=== PATIENT | female | born 1935 | race Caucasian/White ===

== ENCOUNTER 2017-04-15 14:11 | Inpatient (IN) | payer MEDICARE, BC ==
[2017-04-15] MEDS ORDERED: Sodium Chloride 0.9% 10 ML Syringe FLUSH PRN (14:44)
[2017-04-15] MEDS ORDERED: Diltiazem 25 MG/5 ML SDV IVPUSH ONE ×4 (15:11→19:18)
[2017-04-15 15:29] LABS: CHLORIDE,CL 106 mmol/L (98-107); SODIUM,NA 144 mmol/L (136-145)
[2017-04-15] MEDS ORDERED: Diltiazem 100 MG in Sodium Chloride 0.9% 100 ML IV SCH (16:30)
[2017-04-15] MEDS: Apixaban 2.5 MG Tab PO SCH ×2 (18:00→22:57)
[2017-04-15] MEDS ORDERED: Nitroglycerin 0.4 MG Tab.SL SL PRN (18:46)
[2017-04-15] MEDS ORDERED: metFORMIN 500 MG Tab PO SCH (19:00)
[2017-04-15] MEDS ORDERED: Carvedilol 12.5 MG Tab PO SCH (19:00)
[2017-04-15] MEDS ORDERED: Aspirin 81 MG Tab.Chew PO SCH (19:00)
[2017-04-15] MEDS ORDERED: Simvastatin 20 MG Tab PO SCH (20:00)
[2017-04-15] MEDS ORDERED: amLODIPine 10 MG Tab PO SCH (20:00)
[2017-04-15] MEDS ORDERED: Metoprolol Tartrate 50 MG Tab PO SCH (20:00)
[2017-04-15] MEDS ORDERED: Apixaban 2.5 MG Tab PO SCH (20:28)
[2017-04-15 23:59] VITALS: BP 142/77
--- NOTE | 2017-04-16 01:12 | HP ---
Admission history and physical along with the transfer summary. Date of transfer: 04/15/2017. REASON FOR ADMISSION: Palpitations with tachycardia. HISTORY OF PRESENT ILLNESS: An 82-year-old white female, woke at about 11:30 this morning. She had a little bit of discomfort in the right jaw. It got better. She had lunch, but at about 12:30, she noted that her heart was going fast. This concerned her, because when she had jaw pain previously, she had a heart attack and she does have a history of atrial fibrillation and she was concerned that she was having problems with her heart when these symptoms occurred. She then went to the emergency room where she arrived about 3 o'clock for further assessment. In the emergency room, she was found to be in atrial fibrillation with rapid ventricular response. She was assessed by the provider. Placed on Cardizem per protocol with 2 boluses and recommended for admission for further management. PAST MEDICAL HISTORY: 1. Significant for previous atrial fibrillation. She had been on Coumadin in the past, this was stopped some time ago by her promotions director and she is currently on aspirin and Plavix. 2. She is status post [place] in 2012. She had a stent in the right coronary artery. 3. She had a pacemaker placed about that same time. The type of pacemakers is undetermined. Previous EKGs are showing electronic atrial pacemaker. No evidence of ventricular spike on those EKGs. Family says the pacemaker was placed because of her heart going too fast and they were having a hard time controlling her heart rate. 4. Chronic kidney disease stage III. 5. Mild diastolic dysfunction. 6. Type 2 diabetes mellitus. 7. Sick sinus syndrome. 8. Hypothyroidism. 9. Hyperlipidemia. 10.Obstructive sleep apnea. 11.History of hepatitis, type unknown. MEDICATIONS: Vitamin D3, carvedilol 12.5 mg b.i.d., alprazolam half to one tablet t.i.d. p.r.n., amlodipine 10 mg daily, multivitamin daily, artificial tears, aspirin 81 mg daily, glipizide 10 mg with breakfast, lisinopril 20 mg daily, Victoza 1.2 mg subcu daily, levothyroxine 25 mcg daily, hydrochlorothiazide 12.5 mg daily, Plavix 75 mg daily, metformin 1000 mg b.i.d., simvastatin 20 mg at bedtime and nitroglycerin as directed. ALLERGIES: Amiodarone, Lipitor, Farxiga, Tradjenta, and pravastatin. REVIEW OF SYSTEMS: She denies any dizziness or lightheadedness. No chest pain. No shortness of breath. Jaw pain resolved when she went to the emergency room. No nausea or vomiting. No abdominal pain. No headache. No URI symptoms. No cough. No abdominal pain. No change in bowel habits. No urinary symptoms except for nocturia x2. She does have leg cramps. No numbness or tingling in the extremities. PHYSICAL EXAMINATION: General: She is alert. She is afebrile. Vital Signs: Heart rate running in the 110s to 120s. Blood pressure is 153/82, respirations 16, O2 sats 93% on room air. HEENT: Pupils unremarkable. TMs negative. Throat clear. Neck: No adenopathy. Heart: Irregular without murmur. Lungs: Clear to auscultation. Abdomen: Soft, obese, nontender. No masses palpable. EXTREMITIES: Warm and dry. There is no edema. LABORATORY DATA: White count 6.4, hemoglobin 12.0. INR of 1. Electrolytes are normal. Creatinine is 1.7, baseline is 1.4. Glucose 214. LFTs are normal. CK is normal. Troponin is negative. ProBNP is 468. CRP is negative. TSH is 2.022. DIAGNOSTIC DATA: EKG shows atrial fibrillation with a rapid ventricular response. No electronic pacemaker spikes seen. Chest x-ray showed no acute process. HOSPITAL COURSE AND TREATMENT: She was given Cardizem per protocol 2 boluses in the emergency room and then put on a drip. The drip was titrated from 5 mg/hour up to 15 mg/hour without response in heart rate. She was started on Eliquis. Initially given a dose of 5 mg, but this needs to be reduced to 2.5 mg b.i.d. due to her creatinine clearance. I contacted the [facility] on-call promotions director, Dr. Richard. Explained the situation to her and my concern about electronic pacemaker. She expressed no concerns regarding the pacemaker, advised that we could use some Lopressor 50-75 mg t.i.d. orally and stop the Coreg since Lopressor will control the rate. She also advised stopping the aspirin and continuing Plavix along with the Eliquis after renal dosing. Information was given to patient and her family. The family was concerned with the pacemaker not being able to be determined whether it was functioning properly or not as we cannot interrogating the pacemaker at this location and in the past she has had problems with heart rate control requiring transfer to [place], they felt that transfer to [place] will be more appropriate and I concurred with their evaluation. I then contacted [facility] on-call again, talked to the hospitalist Dr. Valladares. He agreed to accept the patient in transfer. He was concerned about her condition, especially due to the fact that her heart rate was not responding to the high dose of the Cardizem drip. He recommended the patient will be accepted at [facility] and placed in the ICU. The patient will be given Lopressor 50 mg p.o. prior to discharge. DISPOSITION: The patient is being transferred to [facility] by [facility] for care of atrial fibrillation with rapid ventricular response. Dr. Valladares, accepting physician. Duration of discharge day and assessment was approximately 1 hour. FM: 04/15/2017 21:13:59 MODL: 04/16/2017 00:49:47 /[id number] MTDD
[2017-04-16] MEDS ORDERED: glipiZIDE 10 MG Tab.ER PO SCH (07:00)
[2017-04-16] MEDS ORDERED: Levothyroxine 25 MCG Tab PO SCH (07:00)
[2017-04-16] MEDS ORDERED: Non-Formulary Medication 1 Each (Liraglutide [Victoza] 1.2 MG) SUBCUT SCH (08:00)
[2017-04-16] MEDS ORDERED: Lisinopril 20 MG Tab PO SCH (08:00)
[2017-04-16] MEDS ORDERED: Multivitamins with Iron/Calcium/Folic Acid/Minerals Tab PO SCH (08:00)
[2017-04-16] MEDS ORDERED: Hydrochlorothiazide 25 MG Tab PO SCH (08:00)
[2017-04-16] MEDS ORDERED: Cholecalciferol (Vitamin D3) 1,000 Unit Tab PO SCH (08:00)
--- NOTE | 2017-04-17 08:21 | ER ---
Date of Service: 04/15/2017 SUBJECTIVE: Migdalia presents to the emergency room with complaints of chest discomfort and lightheadedness. The patient states that she began experiencing these symptoms at approximately 12 o'clock this afternoon after a nap. The patient states that she does have a history of coronary artery disease and does have a pacemaker. According to her medical record, she does have a history of paroxysmally atrial fibrillation diagnosed in 2011. Her coronary artery disease consists of a stent of her right coronary artery. She states that she again is experiencing some chest tightness, discomfort, and some achy type sensation in her neck. She states that she has not been experiencing any diaphoresis. No nausea, vomiting, or diarrhea. PAST MEDICAL HISTORY: 1. Coronary artery disease. 2. Stage 3 chronic kidney disease. 3. Diastolic dysfunction. 4. Type 2 diabetes mellitus. 5. Cardiac pacemaker. 6. History of sick sinus syndrome. 7. History of paroxysmal atrial fibrillation, previously had been on Coumadin and Cardizem according to the patient. 8. Osteoarthritis. 9. Hypothyroidism. 10.Obstructive sleep apnea. 11.Hyperlipidemia. 12.Hepatitis. 13.Osteoarthritis. MEDICATIONS: 1. Carvedilol. 2. Alprazolam. 3. Amlodipine. 4. Multivitamin. 5. Artificial Tears. 6. Vitamin D3. 7. Aspirin. 8. Glucotrol XL. 9. Prinivil. 10.Victoza. 11.Levothyroxine. 12.Hydrochlorothiazide. 13.Plavix. 14.Glucophage. 15.Zocor. 16.Nitrostat. ALLERGIES: Amiodarone, atorvastatin, Farxiga, Tradjenta, and pravastatin. REVIEW OF SYSTEMS: General: No fever or chills. HEENT: No sore throat, rhinorrhea, or congestion. Respiratory: No shortness breath. Cardiac: Again, positive for chest tightness and achiness in her jaw and neck. Denies any significant palpitations. GI: No nausea, vomiting, or diarrhea. No melena, hematochezia, or hematemesis. : Denies any dysuria. Musculoskeletal: No myalgias or arthralgias. Denies any increased peripheral edema. PHYSICAL EXAMINATION: General: This is an 82-year-old female patient, in no acute distress. Vital Signs: Initially, blood pressure was 136/69, heart rate 120 to 150, respiratory rate 16, O2 saturations 98%. 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 SKIN: Warm, pale, and dry. HEENT. Head is normocephalic, atraumatic. Eyes, PERRLA. Extraocular intact. Ears, TMs are clear. Mouth, oral mucosa is moist. Lungs: Clear to auscultation. Heart: Irregularly irregular. She is tachycardic. Abdomen: Soft, nontender. There is no hepatosplenomegaly noted. There is no masses noted. Extremities: Without edema. Neurologic: The patient is alert, answers, all questions appropriately. Her speech is fluent. Her gait is within normal limits. DIAGNOSTIC DATA: A 12-lead EKG was obtained showing atrial fibrillation with RVR. LABORATORY DATA: WBCs 6.4, hemoglobin 12.0, and platelets are 191. Coags; PT is 10.3, INR is 1.0. Chemistry: Sodium is 144, potassium is 4.0, chloride is 106, bicarb is 25, BUN is 22, creatinine is 1.7, GFR is 29, glucose is 214, calcium is 8.8, corrected calcium is 9.28, total bilirubin is 0.6, AST is 19, ALT is 28, alkaline phosphatase is 74. CK is 94, CK-MB is 1.1. Troponin is 0.00, C-reactive protein is less than 0.2. BNP is 468, and TSH is 2.02. A portable chest x-ray was obtained. There was no evidence of any acute failure pattern. EMERGENCY ROOM COURSE: IV access was established. She was given Cardizem in 220 mg doses. The patient's heart rate decreased from approximately 150 down to 70s range. After a short period time, the patient's heart rate would increase and she would not be back up in the 120 to 150s. Subsequently, the patient was started on a Cardizem drip and decision was made to admit the patient onto the floor. ASSESSMENT: Atrial fibrillation with rapid ventricular response. PLAN: The patient will be admitted acutely. I did speak with a Dr. Mitchel Bowles regarding admission for this patient. The patient will be admitted acutely. We will start her on Eliquis 10 mg b.i.d. All questions were answered. MWK: 04/15/2017 16:34:33 MODL: 04/15/2017 17:18:42 /[id number]
== END 2017-04-15 21:55 | disposition short-term general hospital (02) | DRG 309 ==
LOC: VM.ED 14:11 → VM.MS 16:27
PROVIDERS: ADMIT Family Medicine; ATTEND Family Medicine
DX: I48.0 Paroxysmal atrial fibrillation (principal); R42 Dizziness and giddiness; R07.9 Chest pain, unspecified; I50.30 Unspecified diastolic (congestive) heart failure; I25.10 Atherosclerotic heart disease of native coronary artery without angina pectoris; Z95.0 Presence of cardiac pacemaker; E11.9 Type 2 diabetes mellitus without complications; M19.90 Unspecified osteoarthritis, unspecified site; E03.9 Hypothyroidism, unspecified; G47.33 Obstructive sleep apnea (adult) (pediatric); E78.5 Hyperlipidemia, unspecified; Z79.82 Long term (current) use of aspirin; Z79.899 Other long term (current) drug therapy; Z79.84 Long term (current) use of oral hypoglycemic drugs; N18.3 Chronic kidney disease, stage 3 (moderate); I25.2 Old myocardial infarction; K75.9 Inflammatory liver disease, unspecified; Z88.8 Allergy status to other drugs, medicaments and biological substances
CPT/HCPCS: 36415; 71010; 80053; 82550; 82553; 83880; 84443; 84484; 85025; 85610; 86140; 93005; 96374; 96376; 99284; 99285; J7050; 82962; A9270-GY; J3490

== ENCOUNTER 2017-05-25 08:43 | Emergency (ER) | payer MEDICARE, BC ==
[2017-05-25 09:21] VITALS: BP 115/65
--- NOTE | 2017-05-25 09:46 | EDM.PDOC ---
ED HPI GENERAL MEDICAL PROBLEM - General Chief Complaint: Cardiovascular Problem Stated Complaint: CARDIAC ISSUES Time Seen by Provider: 05/25/17 08:51 Source of Information: Reports: Patient, RN, RN Notes Reviewed History Limitations: Reports: No Limitations - History of Present Illness INITIAL COMMENTS - FREE TEXT/NARRATIVE: Patient presents the emergency room at [facility] complaining of heart palpitations and shortness of breath. The patient states her symptoms began around 11:00 last night. The patient did take a nitroglycerin which did seem to help her symptoms. The patient states that when she felt the palpitations and shortness of breath her neck felt "tight." The patient states that she does have a permanent pacemaker. The patient states that these same symptoms occurred about 1 month ago and seen in this emergency room. The patient was subsequently transferred to [facility] in [place] for further treatment and evaluation. The patient states that she underwent a cardiac catheter and interrogation of her pacemaker; all of which came back normal. At that time the patient was discharged from [facility]. The patient denies any current symptomatology during exam. The patient denies any focal neurological deficit. The patient denies any back pain. The patient denies any nausea or vomiting. The patient denies any dizziness. The patient did not fall. The patient states she feels steady on her feet. Onset Date: 05/24/17 Onset Time: 23:00 Duration: Resolved Prior to Arrival Location: Reports: Chest Associated Symptoms: Reports: Shortness of Breath Treatments BANK MANAGER: Reports: Nitroglycerin - Related Data Allergies Allergy/AdvReac Type Severity Reaction Status Date / Time amiodarone Allergy Cannot Verified 04/15/17 17:03 Remember atorvastatin [From Lipitor] Allergy Cannot Verified 04/15/17 17:03 Remember dapagliflozin [From Farxiga] Allergy Cannot Verified 04/15/17 17:03 Remember linagliptin [From Tradjenta] Allergy Cannot Verified 04/15/17 17:03 Remember pravastatin Allergy Cannot Verified 04/15/17 17:03 Remember Home Meds: Home Meds ALPRAZolam [Alprazolam] 0.5 - 1 tab PO TID PRN 04/15/17 [History] Aspirin 81 mg PO BRK 04/15/17 [History] Carvedilol [Carvedilol] 12.5 mg PO BIDMEALS 04/15/17 [History] Cholecalciferol (Vitamin D3) [Vitamin D3] 2,000 unit PO DAILY 04/15/17 [History] Clopidogrel [Plavix] 75 mg PO DAILY 04/15/17 [History] Dextran 70/Hypromellose [Artificial Tears] 1 each OP BEDTIME 04/15/17 [History] Hydrochlorothiazide 12.5 mg PO DAILY 04/15/17 [History] Levothyroxine 25 mcg PO ACBREAKFAST 04/15/17 [History] Liraglutide [Victoza] 1.2 mg SUBCUT DAILY 04/15/17 [History] Lisinopril [Prinivil] 20 mg PO DAILY 04/15/17 [History] Multivitamin [Multivitamins] 1 each PO DAILY 04/15/17 [History] Nitroglycerin [Nitrostat] 0.4 mg SL ASDIRECTED PRN 04/15/17 [History] Simvastatin [Zocor] 20 mg PO BEDTIME 04/15/17 [History] amLODIPine [Norvasc] 10 mg PO BEDTIME 04/15/17 [History] glipiZIDE [Glucotrol XL] 10 mg PO ACBREAKFAST 04/15/17 [History] metFORMIN [Glucophage] 1,000 mg PO BIDMEALS 04/15/17 [History] Past Medical History HEENT History: Reports: Impaired Vision, Other (See Below) Other HEENT History: ptosis Cardiovascular History: Reports: Afib, CAD, High Cholesterol, Hypertension, [place], Pacemaker, Stents, Other (See Below) Other Cardiovascular History: diastolic dysfunction, sick sinus syndrome Respiratory History: Reports: Sleep Apnea, Other (See Below) Other Respiratory History: dyspnea Gastrointestinal History: Reports: Hepatitis, Other (See Below) Other Gastrointestinal History: abd pain Genitourinary History: Reports: Renal Disease Musculoskeletal History: Reports: Osteoarthritis Psychiatric History: Reports: Anxiety Endocrine/Metabolic History: Reports: Diabetes, Type II, Hypothyroidism, Vitamin D Deficiency, Other (See Below) Other Endocrine/Metabolic History: left thyroid nodule, chronic lymphocytic thyroiditis, generalized hyperhidrosis - Past Surgical History HEENT Surgical History: Reports: None Cardiovascular Surgical History: Reports: Coronary Artery Stent, Pacer Female Surgical History: Reports: Hysterectomy Musculoskeletal Surgical History: Reports: Hip Replacement Social & Family History - Family History Family Medical History: Noncontributory - Tobacco Use Smoking Status *Q: Never Smoker Second Hand Smoke Exposure: No - Caffeine Use Caffeine Use: Reports: Coffee - Recreational Drug Use Recreational Drug Use: No ED ROS GENERAL - Review of Systems Review Of Systems: See Below Constitutional: Denies: Fever, Chills, Weakness Respiratory: Reports: Shortness of Breath. Denies: Cough, Sputum Cardiovascular: Reports: Lightheadedness, Palpitations. Denies: Chest Pain GI/Abdominal: Denies: Abdominal Pain, Nausea, Vomiting Skin: Reports: No Symptoms Neurological: Reports: No Symptoms. Denies: Headache ED EXAM, GENERAL - Physical Exam Exam: See Below Exam Limited By: No Limitations General Appearance: Alert, No Apparent Distress Respiratory/Chest: No Respiratory Distress, Lungs Clear, Normal Breath Sounds Cardiovascular: Normal Peripheral Pulses, Regular Rate, Rhythm, No JVD, No Murmur GI/Abdominal: Normal Bowel Sounds, Soft, Non-Tender Neurological: Alert, Oriented Skin Exam: Warm, Dry, Intact, Normal Color, No Rash EKG INTERPRETATION EKG Date: 05/25/17 Time: 09:16 Rhythm: Other (Atrial Paced) Rate (Beats/Min): 72 [place]: Normal P-Wave: Enlarged QRS: Normal ST-T: Normal QT: Normal VA/PQ Interval: 0.17 Comparison: No Change EKG Interpretation Comments: 1. Electronic Atrial Pacemaker 2. Low QRS voltage in precordial leads 3. Nonspecific ST & T-wave abnormality Course - Vital Signs Last Recorded V/S: Last Vital Signs Temp 36.2 C 05/25/17 08:45 Pulse 78 05/25/17 08:45 Resp 16 05/25/17 08:45 BP 115/65 05/25/17 08:45 Pulse Ox 95 05/25/17 08:45 - Orders/Labs/Meds Orders: Active Orders 24 hr Category Date Time Status EKG 12 Lead [EKG Documentation Completion] [RC] STAT Care 05/25/17 09:35 Ordered Chest 2V [CR] Stat Exams 05/25/17 09:34 Taken Labs: Laboratory Tests 05/25/17 05/25/17 Range/Units 09:45 09:45 WBC 5.3 (4.0-10.0) x10^3/uL RBC 4.13 (4.00-5.50) x10^6/uL Hgb 12.3 (12.0-16.0) g/dL Hct 37.0 (33.0-47.0) % MCV 89.6 (78.0-93.0) fL MCH 29.8 (26.0-32.0) pg MCHC 33.2 (32.0-36.0) g/dL RDW Coeff of [place] 13.5 (10.0-15.0) % Plt Count 169 (130-400) x10^3/uL Neut % (Auto) 63.2 (50.0-80.0) % Lymph % (Auto) 27.8 (25.0-50.0) % Divide % (Auto) 7.6 (2.0-11.0) % Eos % (Auto) 1.0 (0.0-4.0) % Baso % (Auto) 0.4 (0.2-1.2) % Sodium 140 (136-145) mmol/L Potassium 3.9 (3.5-5.1) mmol/L Chloride 106 (98-107) mmol/L Carbon Dioxide 21 (21-32) mmol/L BUN 34 H (7-18) mg/dL Creatinine 1.9 H (0.55-1.02) mg/dL Est Cr Clr Drug Dosing TNP Estimated GFR (MDRD) 25 Glucose 219 H (74-106) mg/dL Calcium 8.7 (8.5-10.1) mg/dL Creatine Kinase 61 (26-192) U/L Creatine Kinase Index 1.8 (0.0-4.0) % CK-MB (CK-2) 1.1 (0.0-3.6) ng/mL Troponin I < 0.017 (<=0.056) ng/mL Departure - Departure Time of Disposition: 11:27 Disposition: Home, Self-Care 01 Condition: Good Clinical Impression: Palpitations Instructions: Palpitations Referrals: Billie Napoles MD [Primary Care Provider] - Forms: ED Department Discharge Additional Instructions: 1. Stay well hydrated and rest 2. Start new medication today; if you have problems with it, call Dr. Mccormack office 3. See Dr. Napoles in clinic on June 01, at 12:40 ED Communication - ED Communication Date/Time Date: 05/25/17 Time Called: 10:35 - Conversation Summary Summary Comment: Discussed case with Dr. Napoles. Recommend starting patient on Imdur and f/u in clinic in one week. - Problem List Review Problem List Initiated/Reviewed/Updated: Yes - My Orders Last 24 Hours: My Active Orders 05/25/17 09:34 Chest 2V [CR] Stat 05/25/17 09:35 EKG 12 Lead [EKG Documentation Completion] [RC] STAT - Assessment/Plan Last 24 Hours: My Active Orders 05/25/17 09:34 Chest 2V [CR] Stat 05/25/17 09:35 EKG 12 Lead [EKG Documentation Completion] [RC] STAT
[2017-05-25 10:21] LABS: CHLORIDE,CL 106 mmol/L (98-107); SODIUM,NA 140 mmol/L (136-145)
== END 2017-05-25 11:42 | disposition home or self-care (01) ==
LOC: VM.ED 08:43
DX: R00.2 Palpitations (principal); H54.7 Unspecified visual loss; I48.91 Unspecified atrial fibrillation; I25.10 Atherosclerotic heart disease of native coronary artery without angina pectoris; E78.00 Pure hypercholesterolemia, unspecified; I25.2 Old myocardial infarction; E11.9 Type 2 diabetes mellitus without complications; E03.9 Hypothyroidism, unspecified; Z90.710 Acquired absence of both cervix and uterus; Z88.8 Allergy status to other drugs, medicaments and biological substances; Z79.82 Long term (current) use of aspirin; Z79.899 Other long term (current) drug therapy; Z96.649 Presence of unspecified artificial hip joint
CPT/HCPCS: 36415; 71020; 80048; 82550; 82553; 84484; 85025; 93005; 99284-GF; 99285

== ENCOUNTER 2018-06-01 19:12 | Emergency (ER) | payer BC, MEDICARE, OTHER ==
[2018-06-01 19:31] VITALS: BP 176/80
--- NOTE | 2018-06-02 06:47 | EDM.PDOC ---
ED HPI GENERAL MEDICAL PROBLEM - General Chief Complaint: General Stated Complaint: hypertension Time Seen by Provider: 06/01/18 19:40 Source of Information: Reports: Patient History Limitations: Reports: No Limitations - History of Present Illness INITIAL COMMENTS - FREE TEXT/NARRATIVE: Pt. presents to ER with complaints of hypertension. She underwent a cardioversion for a-fib on 05/31. Prior to and following the procedure (which utilized a short conscious sedation) she was hypertensive with a BP of >180 systolic. She was seen in clinic yesterday. She was informed to take an extra half dose of lisinopril and return to ER if the blood pressure continues to be elevated. She states that she has not been experiencing any fever or chills. No chest pain or shortness of breath. No lightheadedness or palpitations. Pt. states that her BP at home was in the 190/100 range earlier today. Onset: Today Onset Date: 06/01/18 - Related Data Allergies Allergy/AdvReac Type Severity Reaction Status Date / Time amiodarone Allergy Cannot Verified 04/15/17 17:03 Remember atorvastatin [From Lipitor] Allergy Cannot Verified 04/15/17 17:03 Remember dapagliflozin [From Farxiga] Allergy Cannot Verified 04/15/17 17:03 Remember linagliptin [From Tradjenta] Allergy Cannot Verified 04/15/17 17:03 Remember pravastatin Allergy Cannot Verified 04/15/17 17:03 Remember Home Meds: Home Meds ALPRAZolam [Alprazolam] 0.5 - 1 tab PO TID PRN 04/15/17 [History] Aspirin 81 mg PO BRK 04/15/17 [History] Carvedilol 12.5 mg PO BIDMEALS 04/15/17 [History] Cholecalciferol (Vitamin D3) [Vitamin D3] 2,000 unit PO DAILY 04/15/17 [History] Clopidogrel [Plavix] 75 mg PO DAILY 04/15/17 [History] Dextran 70/Hypromellose [Artificial Tears] 1 each OP BEDTIME 04/15/17 [History] Hydrochlorothiazide 12.5 mg PO DAILY 04/15/17 [History] Levothyroxine 25 mcg PO ACBREAKFAST 04/15/17 [History] Liraglutide [Victoza] 1.2 mg SUBCUT DAILY 04/15/17 [History] Lisinopril [Prinivil] 20 mg PO DAILY 04/15/17 [History] Multivitamin [Multivitamins] 1 each PO DAILY 04/15/17 [History] Nitroglycerin [Nitrostat] 0.4 mg SL ASDIRECTED PRN 04/15/17 [History] Simvastatin [Zocor] 20 mg PO BEDTIME 04/15/17 [History] amLODIPine [Norvasc] 10 mg PO BEDTIME 04/15/17 [History] glipiZIDE [Glucotrol XL] 10 mg PO ACBREAKFAST 04/15/17 [History] metFORMIN [Glucophage] 1,000 mg PO BIDMEALS 04/15/17 [History] Isosorbide Mononitrate [Imdur] 30 mg PO DAILY 7 Days #7 tab.er 05/25/17 [Rx] Past Medical History HEENT History: Reports: Impaired Vision, Other (See Below) Other HEENT History: ptosis Cardiovascular History: Reports: Afib, CAD, High Cholesterol, Hypertension, [place], Pacemaker, Stents, Other (See Below) Other Cardiovascular History: diastolic dysfunction, sick sinus syndrome Respiratory History: Reports: Sleep Apnea, Other (See Below) Other Respiratory History: dyspnea Gastrointestinal History: Reports: Hepatitis, Other (See Below) Other Gastrointestinal History: abd pain Genitourinary History: Reports: Renal Disease Musculoskeletal History: Reports: Osteoarthritis Psychiatric History: Reports: Anxiety Endocrine/Metabolic History: Reports: Diabetes, Type II, Hypothyroidism, Vitamin D Deficiency, Other (See Below) Other Endocrine/Metabolic History: left thyroid nodule, chronic lymphocytic thyroiditis, generalized hyperhidrosis - Past Surgical History HEENT Surgical History: Reports: None Cardiovascular Surgical History: Reports: Coronary Artery Stent, Pacer Female Surgical History: Reports: Hysterectomy Musculoskeletal Surgical History: Reports: Hip Replacement Social & Family History - Family History Family Medical History: Noncontributory - Tobacco Use Smoking Status *Q: Unknown Ever Smoked - Caffeine Use Caffeine Use: Reports: Coffee ED ROS GENERAL - Review of Systems Review Of Systems: See Below Constitutional: Reports: No Symptoms HEENT: Reports: No Symptoms Respiratory: Reports: No Symptoms Cardiovascular: Reports: Blood Pressure Problem Endocrine: Reports: No Symptoms GI/Abdominal: Reports: No Symptoms : Reports: No Symptoms Musculoskeletal: Reports: No Symptoms Skin: Reports: No Symptoms Neurological: Reports: No Symptoms Psychiatric: Reports: No Symptoms Hematologic/Lymphatic: Reports: No Symptoms Immunologic: Reports: No Symptoms ED EXAM, GENERAL - Physical Exam Exam: See Below Exam Limited By: No Limitations General Appearance: Alert, WD/WN, No Apparent Distress Eye Exam: Bilateral Eye: EOMI, Normal Fundi, Normal Inspection, PERRL Ears: Normal External Exam, Normal Canal, Hearing Grossly Normal, Normal TMs Respiratory/Chest: No Respiratory Distress, Lungs Clear, Normal Breath Sounds, No Accessory Muscle Use, Chest Non-Tender Cardiovascular: Normal Peripheral Pulses, Regular Rate, Rhythm, No Edema, No Gallop, No JVD, No Murmur, No Rub Peripheral Pulses: 4+: Radial (R) (Female) Exam: Normal External Exam, Normal Speculum Exam, Normal Bimanual Exam Extremities: Normal Inspection, Normal Range of Motion, Non-Tender, Normal Capillary Refill, No Pedal Edema Neurological: Alert, Oriented, CN II-XII Intact, Normal Cognition, Normal Gait, Normal Reflexes, No Motor/Sensory Deficits Course - Vital Signs Last Recorded V/S: Last Vital Signs Temp 36.4 C 06/01/18 19:24 Pulse 74 06/01/18 19:24 Resp 18 06/01/18 19:24 BP 176/80 H 06/01/18 19:24 Pulse Ox 92 L 06/01/18 19:24 Departure - Departure Time of Disposition: 20:10 Disposition: Home, Self-Care 01 Condition: Good Clinical Impression: Hypertension screening - Discharge Information Instructions: Hypertension Referrals: Billie Napoles MD [Primary Care Provider] - Forms: ED Department Discharge Additional Instructions: Home to rest. Get plenty of sleep tonight. Return to ER if you have any chest pain, shortness of breath, or racing heart rate. Continue with your medications at their current dosages. Feel free to call the ER if you have any questions.
== END 2018-06-01 19:57 | disposition home or self-care (01) ==
LOC: VM.ED 19:12
DX: I10 Essential (primary) hypertension (principal); E78.00 Pure hypercholesterolemia, unspecified; E11.9 Type 2 diabetes mellitus without complications; E03.9 Hypothyroidism, unspecified; I48.91 Unspecified atrial fibrillation; I25.2 Old myocardial infarction; M19.90 Unspecified osteoarthritis, unspecified site; Z79.84 Long term (current) use of oral hypoglycemic drugs; Z79.899 Other long term (current) drug therapy; Z79.82 Long term (current) use of aspirin; Z88.8 Allergy status to other drugs, medicaments and biological substances
CPT/HCPCS: 99283